=== PATIENT | male | born 2000 | race Hispanic/Latino ===

== ENCOUNTER 2022-09-09 15:31 | Emergency (ER) | payer BC, SELFPAY ==
--- NOTE | ~2022-09-09 | XR_ITS ---
EXAMINATION: XR chest 1V DATE: 09/09/2022 16:06 INDICATION: Left chest pain with inspiration. TECHNIQUE: A single frontal view of the chest was obtained on 2 radiographs. COMPARISON: None. FINDINGS: The chest demonstrates clear lungs without pneumonia, pleural effusion, or pneumothorax. Th e heart size is normal. IMPRESSION: 1. No acute cardiopulmonary disease. Reviewed, dictated and finalized at location A. [employer] DEPARTMENT SUPERVISOR
[2022-09-09 15:45] VITALS: BP 149/85; PULSE 61; RESP 18; TEMP 36.5; O2SAT 100
--- NOTE | 2022-09-09 15:45 | ECG_ITS ---
Measurements Intervals [place] Rate: 58 P: 42 MI: 145 QRS: 59 QRSD: 102 T: 68 QT: 400 QTc: 395 Interpretive Statements SINUS BRADYCARDIA NO PREVIOUS ECG AVAILABLE FOR COMPARISON Electronically Signed On 09-09-2022 16:30:13 CHANNEL PROGRAM MANAGER by Shazia Ramos M.D.
[2022-09-09 18:11] VITALS: BP 142/83; PULSE 52; RESP 18; O2SAT 100
[2022-09-09 19:58] VITALS: BP 136/92; PULSE 59; RESP 16; O2SAT 96
--- NOTE | 2022-09-09 20:34 | ED.GENADULT ---
HPI - General Adult General Chief complaint: Unspecified Stated complaint: pain w/ inspiration Time Seen by Provider: 09/09/22 19:56 Source: patient Mode of arrival: ambulatory Limitations: no limitations History of Present Illness HPI narrative: Patient is a 21-year-old male who presents the ED with report of left-sided chest discomfort. Patient reports the discomfort has been constant over the last few days. Initially seem to be aggravated with drinking caffeine/coffee, and he has quit doing so. Still having discomfort, which prompted his presentation. He has not tried any pain medicine for his pain. Denies any known injury. He did work out his chest muscles recently. He does report worsening pain with taking deep breath. Denies any difficulty breathing, shortness of breath, lower extremity pain or swelling, abdominal pain, nausea, vomiting, fevers, cough or cold symptoms. Related Data Allergies Allergy/AdvReac Type Severity Reaction Status Date / Time No Known Allergies Allergy Verified 09/09/22 20:00 Review of Systems Review of Systems: CONSTITUTIONAL: Denies fever, chills, or sweats. ENT: Denies rhinorrhea, congestion, sore throat. CARDIOVASCULAR: See HPI. RESPIRATORY: See HPI. GASTROINTESTINAL: Denies abdominal pain, nausea, vomiting. GENITOURINARY: Denies dysuria or hematuria. All systems reviewed & are unremarkable except as noted in HPI and below PMFSH Past Medical History Medical History (Updated 09/10/22 @ 01:21 by Mya Green PA-C) No pertinent past medical history Surgical History Surgical History (Updated 09/10/22 @ 01:21 by Mya Green PA-C) No pertinent past surgical history Social History Social History (Updated 09/10/22 @ 01:21 by Mya Green PA-C) Smoking status: Never smoker Exam Narrative: GENERAL: Well appearing, well-nourished, non-toxic, in no acute distress. HEAD: Normocephalic, atraumatic. NECK: Supple. No adenopathy, no masses. RESPIRATORY: Airway patent, respirations nonlabored. Clear to auscultation bilaterally, no rales, rhonchi, wheezing. CARDIOVASCULAR: Regular rate and rhythm without murmurs, rubs, or gallops. Radial pulses 2+ and equal bilaterally. MUSCULOSKELETAL: Moves all extremities. Strength/ROM intact without gross deformities. No chest wall tenderness to palpation. No calf tenderness. No edema. SKIN: Warm, dry, normal color. No rashes. NEURO: A&O X3. Speech clear. Cranial nerves II-XII grossly intact. Steady gait. No ataxic movements. PSYCHIATRIC: Appropriate mood and affect. Normal interaction. Course Vital Signs Vital signs: Vital Signs Temperature 97.7 F 09/09/22 15:45 Pulse Rate 61 09/09/22 15:45 Respiratory Rate 18 09/09/22 15:45 Blood Pressure 149/85 H 09/09/22 15:45 Pulse Oximetry 100 09/09/22 15:45 Oxygen Delivery Room Air 09/09/22 15:45 Temperature 97.7 F 09/09/22 15:45 Pulse Rate 59 L 09/09/22 19:58 Respiratory Rate 16 09/09/22 19:58 Blood Pressure 136/92 H 09/09/22 19:58 Pulse Oximetry 96 09/09/22 19:58 Oxygen Delivery Room Air 09/09/22 15:45 Medical Decision Making MDM Narrative Medical decision making narrative: Patient's EKGs and labs are without significant high risk changes. EKG w/o acute ischemic changes. Troponin negative. Due to patient having constant pain for the last several days, delta Trop was not obtained. Cardiac risk factors reviewed. HEART score = 0. Patient is felt likely low risk for ACS and reasonable for further risk stratification testing as an outpatient. Pain was not sudden or maximal in onset without tearing or ripping quality. No other signs or symptoms to suggest aortic dissection. A low-risk Wells criteria is noted, PERC negative, PE is felt to be unlikely. No pneumonia seen on evaluation today. Patient is felt to be a reasonable candidate for continued evaluation as an outpatient. Discussed that symptoms likely related to musculoskeletal s
[2022-09-09 21:53] LABS: Troponin I < 0.012 ng/mL (0.000-0.034)
== END 2022-09-10 03:34 | disposition home or self-care (01) ==
PROVIDERS: Emergency Provider Physician Assistant
DX: R07.89 Other chest pain (principal); R00.1 Bradycardia, unspecified
CPT/HCPCS: 36415; 71045; 84484; 93005; 99284